=== PATIENT | female | born 1985 | race Hispanic/Latino ===

== ENCOUNTER 2016-07-19 11:36 | Inpatient (IN) | payer OTHER ==
[2016-07-19 12:14] VITALS: BMI 36.7
[2016-07-19] MEDS ORDERED: Lactated Ringer's 1,000 ML IV SCH ×2 (12:14→19:31)
[2016-07-19 13:01] LABS: BASO % 0.5 % (0.0-2.0); EOS # 0.3 K/uL (0.0-0.7); HEMATOCRIT 34.5 % (34.0-47.0); LYMPH # 1.6 K/uL (1.0-4.3); LYMPH % 20.5 % (20.0-40.0); MEAN CELL VOLUME 77.4 fl (81.0-99.0); MEAN CORPUSCULAR HEMOGLOBIN 25.3 pg (27.0-31.0); MEAN CORPUSCULAR HGB CONC 32.7 g/dL (33.0-37.0); MEAN PLATELET VOLUME 10.4 fl (7.2-11.7); MONO # 0.4 K/uL (0.0-0.8); MONO % 5.6 % (0.0-10.0); NEUT # 5.5 K/uL (1.8-7.0); NEUT % 69.4 % (50.0-75.0); NRBC % 0.1 % (0.0-0.0); RED CELL DISTRIBUTION WIDTH 16.3 % (11.5-14.5); WHITE BLOOD COUNT 7.9 K/uL (4.8-10.8)
--- NOTE | 2016-07-19 13:13 | OBADHP ---
Datetime: 07/19/2016 13:06 IP Chief Complaint Other: prev C/S x3 IP Adm Impression Other: prev C/S x3 with vaginal bleeding and cervical changes Admit Comment, IP Provider: refers bleeding episode last night and this am (did not called last nigh t) and now with irreg UC and cervical changes Will admit and get ready for RC/S Extremities - PN: Normal Abdomen - PN: Abnormal Back - PN: Normal Breast - PN: Normal Lungs - PN: Normal Heart - PN: Normal Thyroid - PN: Normal Neurologic - PN: Normal HEENT - PN: Normal General - PN: Normal FHR - Baseline A Provider: 130-140 Membranes, Provider: Intact Contraction Comments Provider: irreg Comments, ACOG Physical Exam: Abd gravid wijth fundus at 39 cm above sp, NT Ext no calf tenderness Gestation - Est Wks by US: 38.0 IP Hx Assessment: The History has been Reviewed and is Current Vital Signs Provider: Reviewed IP Chief Complaint: Uterine contractions; Vaginal bleeding; Other NICHD Variability Prov Fetus A: Minimal - Undetectable to <5bpm NICHD Accel Fetus A IP Provider: 10X10 NICHD Decel Fetus A IP Provider: None Dilatation, Provider: 1-2cm Effacement, Provider: 50-60% Station, Provider: -2 Genitourinary Exam: Normal EGA AdmitDate IP: 38.0 IP Adm Impression: Term, intrauterine IP Admit Plan: Admit to unit; Initiate Section protocol
[2016-07-19] MEDS ORDERED: cefOXitin Sodium 1 GM in Sodium Chloride 0.9% 100 ML IVPB ONE (13:14)
[2016-07-19] MEDS ORDERED: Morphine 1 mg/ml preservative-free Inj(Duramorph) IT ONE ×2 (14:30→19:31)
[2016-07-19] MEDS ORDERED: Oxytocin 30 units/LR 500ML 30 U/500 ML BAG IV SCH (15:46)
[2016-07-19] MEDS ORDERED: Oxycodone/Acetaminophen 5/325 mg Tab PO PRN (15:46)
[2016-07-19] MEDS ORDERED: DiphenhydrAMINE 50 mg/ml Inj IVP PRN ×2 (15:47→19:31)
[2016-07-19] MEDS ORDERED: cefOXitin Sodium 1 GM in Sodium Chloride 0.9% 100 ML IVPB SCH (17:00)
[2016-07-19] MEDS: cefOXitin Sodium 1 GM in Sodium Chloride 0.9% 100 ML IVPB SCH (22:29)
[2016-07-20] MEDS: cefOXitin Sodium 1 GM in Sodium Chloride 0.9% 100 ML IVPB SCH ×2 (06:08→14:24)
[2016-07-20] MEDS ORDERED: Lactated Ringer's 1,000 ML IV SCH (07:30)
[2016-07-20 07:41] LABS: HEMATOCRIT 28.7 % (34.0-47.0); MEAN CELL VOLUME 77.8 fl (81.0-99.0); MEAN CORPUSCULAR HEMOGLOBIN 25.5 pg (27.0-31.0); MEAN CORPUSCULAR HGB CONC 32.7 g/dL (33.0-37.0); WHITE BLOOD COUNT 9.6 K/uL (4.8-10.8)
--- NOTE | 2016-07-20 08:38 | OBPPN ---
Datetime: 07/20/2016 08:33 PP Pain Prov: Within normal limits PP Pain Prov comment: no SOB, chest pains or leg pains PP Nausea Prov: Denies PP BM Prov: No PP Breasts Prov: Normal PP Lungs Prov: Normal PP Abdomen/Uterus Prov: Abnormal PP Lochia Prov: Normal PP Vulva/Perineum Prov: Normal PP CVA Tenderness Prov: Normal PP Extremities Prov: Normal PP C/S Incision Prov: Normal PP Progress Prov: Normal PP Comments Phys Exam Prov: Abd soft ND, depressible fundus firm below the umb. Dressing intact no sign of active bleeding Ext no calf tenderness PP Impression Prov: Normal progression PP Plan Prov: Continue present management PP Progress Note Prov: Advance diet OOB and ambulation and increase po fluids Start po iron Vital Signs Provider PP: Reviewed
[2016-07-20] MEDS: Docusate Sodium/Ferrous Fumara 1 TAB PO SCH ×2 (09:09→16:55)
[2016-07-20] MEDS: Oxycodone/Acetaminophen 5/325 mg Tab PO PRN ×2 (14:27→20:58)
[2016-07-21] MEDS: Oxycodone/Acetaminophen 5/325 mg Tab PO PRN ×5 (01:07→23:17)
--- NOTE | 2016-07-21 08:21 | OBPPN ---
Datetime: 07/21/2016 08:17 PP Pain Prov: Within normal limits PP Pain Prov comment: Denies SOB, chest pains or leg pains PP Nausea Prov: Denies PP Flatus Prov: Yes PP BM Prov: No PP Nausea Prov comment: voiding well PP Breasts Prov: Normal PP Lungs Prov: Normal PP Abdomen/Uterus Prov: Abnormal PP Lochia Prov: Normal PP Vulva/Perineum Prov: Normal PP CVA Tenderness Prov: Normal PP Extremities Prov: Normal PP C/S Incision Prov: Normal PP Progress Prov: Normal PP Comments Phys Exam Prov: Abd soft ND, depressible fundus firm below the umb. Incision clean and dry prolene in place no suppt or active bleeding Ext no calf tenderness or edema PP Impression Prov: Normal progression PP Plan Prov: Continue present management PP Progress Note Prov: Dulcolax suppt this pm, OOB and ambulation Continue PPand po care IP PP Procedures: None
[2016-07-21] MEDS: Docusate Sodium/Ferrous Fumara 1 TAB PO SCH ×2 (08:49→17:03)
[2016-07-22] MEDS: Docusate Sodium/Ferrous Fumara 1 TAB PO SCH (09:01)
[2016-07-22] MEDS: Oxycodone/Acetaminophen 5/325 mg Tab PO PRN (09:02)
--- NOTE | 2016-07-22 13:06 | OBPPN ---
Datetime: 07/22/2016 13:02 PP Pain Prov: Within normal limits PP Nausea Prov: Denies PP Flatus Prov: Yes PP BM Prov: Yes PP Breasts Prov: Normal PP Heart Prov: Normal PP Lungs Prov: Normal PP Abdomen/Uterus Prov: Normal PP Lochia Prov: Normal PP Vulva/Perineum Prov: Normal PP CVA Tenderness Prov: Normal PP Extremities Prov: Normal PP C/S Incision Prov: Normal PP Progress Prov: Normal PP Impression Prov: Normal progression PP Plan Prov: Continue present management PP Progress Note Prov: stable pod3 continue present care dc home today IP PP Procedures: None
--- NOTE | 2016-07-22 13:16 | OBDCSUM ---
Datetime: 07/22/2016 09:52 Discharged to, Provider: home Follow up at, Provider: MD [facility] Disch Instr Activity: Normal activity Disch Instr Diet: Regular Discharge Instructions, Provider: Routine instructions given Discharge Diagnosis, Provider: Term Delivered Discharge Time: 07/22/2016 13:04 Follow up in weeks, Provider: 1 week Disch Activity Restrictions: No exercising; No lifting; No driving; Minimize walking; Minimize stair -climbing; No sexual activity; Nothing in vagina - Hemlock, tampons, douche Discharge Comment, Provider: dc home today rto 1week call office if any problem Contraception after Delivery: Tubal Ligation
== END 2016-07-22 13:40 | disposition home or self-care (01) | DRG 371 ==
LOC: H.EROB2 11:36 → H.EROBSV 12:17 → H.OB/GYN 19:29
PROVIDERS: ADMIT Specialist; ATTEND Specialist
PROC: 10D00Z1 Extraction of Products of Conception, Low, Open Approach (ICD-10-PCS; principal; 2016-07-19)
PROC: 4A1HXCZ Monitoring of Products of Conception, Cardiac Rate, External Approach (ICD-10-PCS; 2016-07-19)
DX: O34.211 Maternal care for low transverse scar from previous cesarean delivery (principal); N85.8 Other specified noninflammatory disorders of uterus; Z3A.38 38 weeks gestation of pregnancy; Z37.0 Single live birth